=== PATIENT | male | born 2000 | race Caucasian/White ===

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

== ENCOUNTER 2020-01-30 02:07 | Emergency (ER) | payer SELFPAY ==
[2020-01-30 02:31] VITALS: BP 152/70; TEMP 98; O2SAT 100
== END 2020-01-30 02:30 | disposition left against medical advice (07) ==
LOC: ER 02:07
DX: R55 Syncope and collapse (principal); Z53.29 Procedure and treatment not carried out because of patient's decision for other reasons